=== PATIENT | female | born 1990 | race Two or more races ===

== ENCOUNTER 2018-08-22 00:21 | Emergency (ER) | payer OTHER ==
[~2018-08-22] VITALS: Ht 162.6 cm; Wt 68.0 kg
== END 2018-08-22 03:04 | disposition home or self-care (01) ==
LOC: ER 00:21
DX: R00.2 Palpitations (principal); T40.7X5A Adverse effect of cannabis (derivatives), initial encounter; Y92.89 Other specified places as the place of occurrence of the external cause